=== PATIENT | male | born 1995 | race Caucasian/White ===

== ENCOUNTER 2021-01-27 20:49 | Emergency (ER) | payer OTHER ==
[2021-01-27 21:09] VITALS: BP 129/53; PULSE 62; TEMP 97.8; BMI 23.5
[2021-01-27] MEDS ORDERED: ACETAMINOPHEN 325 MG TABLET (FP) PO ONE (21:32)
[2021-01-27] MEDS ORDERED: ACETAMINOPHEN 325 MG TABLET (FP) ONE (22:54)
== END 2021-01-28 00:20 | disposition home or self-care (01) ==
LOC: JER 20:49
DX: R04.0 Epistaxis (principal)
CPT/HCPCS: 70486-TC; 99284-25

== ENCOUNTER 2021-10-19 05:56 | Day surgery (SDC) | payer OTHER ==
[2021-10-19 06:44] VITALS: BMI 26.6
[2021-10-19] MEDS ORDERED: MIDAZOLAM HCL 2 MG/2 ML SINGLE DOSE VIAL ONE (06:54)
[2021-10-19] MEDS ORDERED: SODIUM CHLORIDE 0.9% P/F 10 ML VIAL IJ ONE (06:54)
[2021-10-19] MEDS ORDERED: BUPIVACAINE HCL/PF 0.5% (5MG/ML) 10 ML VIAL ONE (06:54)
[2021-10-19] MEDS ORDERED: BUPIVACAINE LIPOSOME/PF (EXPAREL) 266 MG/20 ML VIAL ONE (06:54)
[2021-10-19] MEDS ORDERED: PROPOFOL 20 ML ONE ×2 (07:14)
[2021-10-19] MEDS ORDERED: BUPIVACAINE HCL/PF 0.25% (2.5MG/ML) 10 ML VIAL ONE (07:33)
[2021-10-19] MEDS ORDERED: EPINEPHrine 1:1,000 1,000 MCG/ML ML ONE (07:33)
[2021-10-19] MEDS ORDERED: ONDANSETRON 4 MG/2 ML VIAL ONE (08:28)
[2021-10-19] MEDS ORDERED: ceFAZolin SODIUM 1 GM VIAL ONE (08:28)
[2021-10-19] MEDS ORDERED: DEXAMETHASONE SOD PHOSPHATE 4 MG/1 ML VIAL ONE (08:28)
[2021-10-19] MEDS ORDERED: VANCOMYCIN 1,000 MG VIAL (RESTRICTED TO ID ONLY) ONE (08:39)
[2021-10-19] MEDS ORDERED: KETOROLAC TROMETHAMINE 30 MG/1 ML VIAL ONE (10:06)
[2021-10-19] MEDS ORDERED: MEPERIDINE HCL 25 MG/ML VIAL IVPUSH PRN (10:41)
[2021-10-19] MEDS ORDERED: ONDANSETRON 4 MG/2 ML VIAL IVPUSH PRN (10:41)
[2021-10-19] MEDS ORDERED: oxyCODONE HCL 5 MG TABLET PO PRN (10:41)
[2021-10-19] MEDS ORDERED: LACTATED RINGERS SOLUTION 1,000 ML IV SCH (10:45)
[2021-10-19 12:25] VITALS: BP 125/74; PULSE 64
[2021-10-19] MEDS ORDERED: oxyCODONE HCL 5 MG TABLET ONE (12:32)
[2021-10-19 13:13] VITALS: TEMP 100
== END 2021-10-19 13:15 | disposition home or self-care (01) ==
LOC: FASU 05:56
PROVIDERS: ATTEND Orthopaedic Surgery Sports Medicine
PROC: 0SBC4ZZ Excision of Right Knee Joint, Percutaneous Endoscopic Approach (ICD-10-PCS; 2021-10-19)
PROC: 0MRN47Z Replacement of Right Knee Bursa and Ligament with Autologous Tissue Substitute, Percutaneous Endoscopic Approach (ICD-10-PCS; principal; 2021-10-19 08:18)
PROC: 0LBQ4ZZ Excision of Right Knee Tendon, Percutaneous Endoscopic Approach (ICD-10-PCS; 2021-10-19 08:18)
DX: S83.511A Sprain of anterior cruciate ligament of right knee, initial encounter (principal); S83.281A Other tear of lateral meniscus, current injury, right knee, initial encounter; X58.XXXA Exposure to other specified factors, initial encounter; Y93.9 Activity, unspecified; Y92.9 Unspecified place or not applicable
CPT/HCPCS: 73560-TC-RT-FY; 94760

== ENCOUNTER 2022-02-01 06:02 | Day surgery (SDC) | payer OTHER ==
[2022-02-01 06:39] VITALS: BMI 26.6
[2022-02-01] MEDS ORDERED: VANCOMYCIN 1,000 MG VIAL (RESTRICTED TO ID ONLY) ONE (07:04)
[2022-02-01] MEDS ORDERED: PROPOFOL 20 ML ONE ×3 (07:21→08:10)
[2022-02-01] MEDS ORDERED: MIDAZOLAM HCL 2 MG/2 ML SINGLE DOSE VIAL ONE ×6 (07:22→10:39)
[2022-02-01] MEDS ORDERED: BUPIVACAINE HCL/PF 0.5% (5MG/ML) 10 ML VIAL ONE ×2 (07:26→07:41)
[2022-02-01] MEDS ORDERED: BUPIVACAINE LIPOSOME/PF (EXPAREL) 266 MG/20 ML VIAL ONE (07:26)
[2022-02-01] MEDS ORDERED: ROPIVACAINE HCL/PF 100 MG/20 ML VIAL ONE (07:38)
[2022-02-01] MEDS ORDERED: SODIUM CHLORIDE 0.9% P/F 10 ML VIAL IJ ONE (07:38)
[2022-02-01] MEDS ORDERED: TRANEXAMIC ACID 1000 MG/10 ML VIAL ONE (08:09)
[2022-02-01] MEDS ORDERED: EPINEPHrine 1:1,000 1,000 MCG/ML ML ONE (10:12)
[2022-02-01] MEDS ORDERED: KETOROLAC TROMETHAMINE 30 MG/1 ML VIAL IVPUSH ONE (11:12)
[2022-02-01] MEDS ORDERED: ACETAMINOPHEN 1000 MG/100 ML BAG IVPB ONE ×2 (11:12→11:35)
[2022-02-01] MEDS ORDERED: ONDANSETRON 4 MG/2 ML VIAL IVPUSH PRN (11:35)
[2022-02-01] MEDS ORDERED: oxyCODONE HCL 5 MG TABLET PO PRN ×2 (11:35)
[2022-02-01] MEDS ORDERED: KETOROLAC TROMETHAMINE 30 MG/1 ML VIAL IVPUSH SCH (11:45)
[2022-02-01] MEDS ORDERED: LACTATED RINGERS SOLUTION 1,000 ML IV SCH (11:45)
[2022-02-01] MEDS ORDERED: ACETAMINOPHEN INJECTION 100 ML IVPB ONE (11:50)
[2022-02-01] MEDS ORDERED: KETOROLAC TROMETHAMINE 30 MG/1 ML VIAL ONE (12:02)
[2022-02-01 12:57] VITALS: TEMP 97.6
[2022-02-01] MEDS ORDERED: oxyCODONE HCL 5 MG TABLET ONE (13:06)
[2022-02-01 14:43] VITALS: BP 126/58; PULSE 58
[2022-02-01] MEDS ORDERED: ACETAMINOPHEN 500 MG TABLET (FP) PO SCH (17:15)
== END 2022-02-01 14:30 | disposition home or self-care (01) ==
LOC: FASU 06:02
PROVIDERS: ATTEND Orthopaedic Surgery Sports Medicine
PROC: 0MRP47Z Replacement of Left Knee Bursa and Ligament with Autologous Tissue Substitute, Percutaneous Endoscopic Approach (ICD-10-PCS; principal; 2022-02-01 08:25)
DX: S83.512A Sprain of anterior cruciate ligament of left knee, initial encounter (principal); X58.XXXA Exposure to other specified factors, initial encounter; Y93.9 Activity, unspecified; Y92.9 Unspecified place or not applicable
CPT/HCPCS: 29888; C1713; 73560-TC-LT-FY; 94760